=== PATIENT | female | born 1990 | race African-American/Black ===

== ENCOUNTER 2019-02-28 07:55 | Emergency (ER) | payer SELFPAY ==
[~2019-02-28] VITALS: Ht 162.6 cm; Wt 71.2 kg
[2019-02-28 08:02] VITALS: BP 117/78
[2019-02-28] MEDS ORDERED: cefTRIAXone SOD 1,000 MG VL IM ONE (09:00)
== END 2019-02-28 09:37 | disposition home or self-care (01) ==
LOC: ER 07:55
DX: J02.0 Streptococcal pharyngitis (principal); J45.909 Unspecified asthma, uncomplicated
CPT/HCPCS: 87070; 87880; 96372; 99283; J0696

== ENCOUNTER 2019-12-21 09:26 | Emergency (ER) | payer MEDICAID ==
[~2019-12-21] VITALS: Ht 160 cm; Wt 78.0 kg
[2019-12-21 09:36] VITALS: BP 120/71
[2019-12-21] MEDS ORDERED: cefTRIAXone SOD 1,000 MG VL IM ONE (10:00)
== END 2019-12-21 10:33 | disposition home or self-care (01) ==
LOC: ER 09:26
DX: J03.90 Acute tonsillitis, unspecified (principal); J45.909 Unspecified asthma, uncomplicated
CPT/HCPCS: 96372; 99283; J0696

== ENCOUNTER → 2020-02-25 | Emergency (ER) | payer MEDICAID ==
[~2020-02-25] VITALS: Ht 160 cm; Wt 78.5 kg
[2020-02-25 21:09] VITALS: BP 123/74
== END | disposition home or self-care (01) ==
LOC: ER 20:37
DX: R06.02 Shortness of breath (principal); R09.81 Nasal congestion; R07.0 Pain in throat; Z20.828 Contact with and (suspected) exposure to other viral communicable diseases
CPT/HCPCS: 71045; 87070; 87804; 87880; 93005; 99285; U0003

== ENCOUNTER 2021-12-21 03:15 | Emergency (ER) | payer MEDICAID ==
[~2021-12-21] VITALS: Ht 160 cm; Wt 74.4 kg
[2021-12-21] MEDS ORDERED: METOCLOPRAMIDE HCL 5MG/ml INJ 2ml VIAL IV ONE (07:30)
[2021-12-21] MEDS ORDERED: KETOROLAC TROMETH 30 MG/ML 1ML VIAL IV ONE (07:30)
[2021-12-21] MEDS ORDERED: SODIUM CHLORIDE 0.9% 1,000 ML IV ONE (07:30)
[2021-12-21 08:16] LABS: Basophils # (auto) 0.1 10 ^3/uL (0-0.2); Eosinophils # (auto) 0.1 10 ^3/uL (0-0.8); Red Cell Distribution Width 14.3 % (11.8-14.3)
[2021-12-21 08:19] LABS: Basophils % (auto) 0.8 % (0.0-2.0); Eosinophils % (auto) 1.8 % (0.0-7.0); Hematocrit 35.6 % (36.0-46.0); Hemoglobin 11.9 g/dL (12.2-16.2); Lymphocytes # (auto) 1.6 10 ^3/uL (0.4-5.4); Lymphocytes % (auto) 20.1 % (10.0-50.0); Mean Corpuscular Hemoglobin 26.4 pg (28.0-32.0); Mean Corpuscular Hgb Conc. 33.5 g/dL (32.0-36.0); Mean Corpuscular Volume 78.9 fL (80.0-100.0); Monocytes # (auto) 0.4 10 ^3/uL (0-1.3); Monocytes % (auto) 5.5 % (0.0-12.0); Neutrophils # (auto) 5.8 10 ^3/uL (1.6-8.6); Neutrophils % (auto) 71.8 % (37.0-80.0); Red Blood Cells 4.51 10^6/uL (4.0-5.20); White Blood Cell 8.1 10^3/uL (4.4-10.8)
[2021-12-21 08:28] LABS: Urine WBC None Seen /hpf (0 - 5)
[2021-12-21 08:49] LABS: Potassium 3.9 mmol/L (3.5-5.1)
[2021-12-21 08:55] LABS: Albumin 3.7 g/dL (3.4-5.0); BUN/Creatinine Ratio 17.3; Bilirubin, Total 0.2 mg/dL (0.2-1.0); Calcium 8.7 mg/dL (8.5-10.1); Total Protein 7.9 g/dL (6.4-8.2)
[2021-12-21 09:31] LABS: Urine Bacteria NONE SEEN /hpf (None Seen); Urine Blood 3+ /uL (Negative); Urine Mucus FEW (None Seen); Urine Specific Gravity 1.025 (1.001-1.035)
[2021-12-21] MEDS ORDERED: NAP500T PO (11:17)
[2021-12-21 11:32] VITALS: BP 103/53
== END 2021-12-21 11:18 | disposition home or self-care (01) ==
LOC: ER 03:15
DX: N83.201 Unspecified ovarian cyst, right side (principal); N83.202 Unspecified ovarian cyst, left side; J45.909 Unspecified asthma, uncomplicated
CPT/HCPCS: 36415; 76856; 80053; 81001; 84702; 85025; 96361; 96374; 96375; 99284; J1885; J2765; J7030

== ENCOUNTER 2024-01-22 02:28 | Emergency (ER) | payer MEDICAID ==
[~2024-01-22] VITALS: Ht 160 cm; Wt 75.6 kg
[~2024-01-22 02:28] MED LIST: NAP500T PO
[2024-01-22 03:20] VITALS: BP 134/83; PULSE 86; RESP 18; TEMP 97.9; O2SAT 99
[2024-01-22] MEDS: LIDOCAINE 1% HCL (LOCAL ANESTH.) INJ 20ML MDV ONE (03:40)
[2024-01-22] MEDS ORDERED: CEPH500C PO (04:12)
[2024-01-22] MEDS ORDERED: MUPI2OIN2 EX (04:12)
[2024-01-22] MEDS ORDERED: IBUP1TAB5 PO (04:12)
[2024-01-22] MEDS: LIDOCAINE 1% HCL (LOCAL ANESTH.) INJ 20ML MDV ID ONE (04:15)
[2024-01-22] MEDS: IBUPROFEN 800 MG TAB PO ONE (05:07)
[2024-01-22] MEDS: TETANUS-DIPTH-ACEL PERTUSSIS 0.5ML SYR Tdap IM ONE (05:07)
== END 2024-01-22 05:11 | disposition home or self-care (01) ==
LOC: ER 02:28
DX: S01.01XA Laceration without foreign body of scalp, initial encounter (principal); S09.90XA Unspecified injury of head, initial encounter; J45.909 Unspecified asthma, uncomplicated; F41.9 Anxiety disorder, unspecified; Y04.2XXA Assault by strike against or bumped into by another person, initial encounter; Y93.89 Activity, other specified; Y92.89 Other specified places as the place of occurrence of the external cause; Y99.8 Other external cause status
CPT/HCPCS: 12002; 70450; 70486; 90471; 90715; 99285; J2001